=== PATIENT | female | born 1975 | race African-American/Black ===

== ENCOUNTER 2019-01-28 08:08 | Emergency (ER) | payer OTHER ==
[~2019-01-28] VITALS: Ht 167.6 cm; Wt 69.8 kg
[~2019-01-28 08:08] MED LIST: ALBUTEROL INHAL17 GM IH; BACTRIM DS TAB1 EACH PO; CRESTOR40 MG; HYDROCODONE-AP1 EAC6 PO; KEPPRA 500 MG500 M1 PO; LAMICTAL XR200 MG PO; ONDANSETRON HCL4 M2 PO; PREDNISONE 20 M20 MG PO; SIMVASTATIN40 MG; TOPAMAX200 MG; ZPAK PO
[2019-01-28 08:51] LABS: ABSOLUTE NEUTROPHILS 1.7 thou/uL (1.4-8.2); BASOPHILS 1.2 % (0.0-2.0); EOSINOPHILS 3.5 % (0.0-3.0); HEMATOCRIT 40.6 % (37.0-47.0); HEMOGLOBIN 13.6 gm/dL (12.0-15.0); LYMPHOCYTES 31.2 % (24.0-44.0); MCH 32.8 pg (26.0-34.0); MCHC 33.5 g/dL (28.0-37.0); MCV 97.9 fL (80.0-100.0); MONOCYTES 11.7 % (1.0-8.0); PLATELET COUNT 244 thou/uL (150-400); POLYS 52.4 % (36.0-66.0); RBC 4.15 mil/uL (4.20-5.00); RDW 12.7 % (10.5-14.5); WBC 3.2 thou/uL (4.0-11.0)
[2019-01-28 08:59] LABS: CALCIUM 8.6 mg/dL (8.5-10.1); CREATININE 0.8 mg/dL (0.6-1.0)
[2019-01-28 09:07] LABS: ALBUMIN 3.7 g/dL (3.4-5.0); MAGNESIUM 1.9 mg/dL (1.8-2.4); TOTAL BILIRUBIN 0.5 mg/dL (<0.1-1.0); TOTAL PROTEIN 7.4 g/dL (6.4-8.2)
[2019-01-28 10:27] LABS: AMP/METHAMP Negative (Negative); BARBITURATES Negative (Negative); BENZODIAZEPINES Negative (Negative); COCAINE Negative (Negative); METHADONE Negative (Negative); OPIATES Negative (Negative); PCP Negative (Negative)
[2019-01-28 11:07] VITALS: BP 111/77
== END 2019-01-28 11:07 | disposition home or self-care (01) ==
LOC: ER 08:08
PROVIDERS: Emergency Medicine
DX: G40.209 Localization-related (focal) (partial) symptomatic epilepsy and epileptic syndromes with complex partial seizures, not intractable, without status epilepticus (principal); R51 Headache; Z98.890 Other specified postprocedural states; Z98.51 Tubal ligation status

== ENCOUNTER 2020-10-04 08:24 | Inpatient (IN) | payer OTHER ==
[~2020-10-04] VITALS: Ht 157.5 cm; Wt 70.7 kg
--- NOTE | ~2020-10-04 | EMS ---
[address] [address] EMS Patient Care Report Name: ELOISA HARRINGTON Room #: 208-P ADM IN M.R.#: [id number] Admission: 10/04/20 Attend Phys: David Lozada MD Discharge: Date of : 77 Report #: [id number] THIS REPORT FOR: //name// Report Transmitted: 10/05/2020 06:00 EMS Care Summary [place], [place]/[facility] Incident [id number] @ 10/04/2020 07:51 Incident Location [address] [place] [address] [place] [address] Patient ELOISA HARRINGTON Female, 45 Years 1975 Patient Address [address] [place] [address] [place] [id number] Patient History Epilepsy,Brain Tumor, Patient Allergies No known allergies, Patient Medications Keppra, Lamictal, Chief Complaint SI Disposition Transported No Lights/[place] Dispatch Reason Psychiatric Problem/Abnormal Behavior/Suicide Attempt Transported To [facility] [place] Narrative Arrived on the scene, with P722, for a 45 y/o female that is being escorted out of the house by PD. Pt said that she took 20+ pills of Lamictal and a handful of Keppra in an attempt to kill herself. Pt said that she also drank a bunch of Tequila to make it happen quicker. Pt said that she took the pills about an [address] [address] EMS Patient Care Report Name: ELOISA HARRINGTON Room #: 208-P [facility] IN .R.#: [id number] Admission: 10/04/20 Attend Phys: David Lozada MD Discharge: Date of : 77 Report #: [id number] hour ago. Pt said that she has a headache and is very tired and just wants to sleep. Pt said that she did this because she is unhappy with her boyfriend. See Pt Assessment SI with plan, OD on medications See Flowchart. Helped the Pt onto the cot. Transported to the hospital with zero change or incidents. Assisted the Pt from the cot to the bed. Transferred care to receiving facility. Initial Vitals @08:13P: 130,R: 18,BP: 130/85,Pain: 4/10,GCS: 15,CO: 2,SpO2: 100,Revised Trauma: 12,CA Suspected: false @08:04P: 80,R: 18,BP: 130/92,Pain: 4/10,GCS: 15,Revised Trauma: 12,CA Suspected: false Assessments @08:03MENTAL:Person Oriented,Time Oriented,Event Oriented,Place Oriented,SKIN:HEENT:Head/Face: No Abnormalities,Eyes: No Abnormalities,Neck/Airway: No Abnormalities,LUNG SOUNDS:General: Nausea,Left Upper: No Abnormalities,Right Upper: No Abnormalities,Left Lower: No Abnormalities,Right Lower: No Abnormalities,ABDOMEN:General: Nausea,Left Upper: No Abnormalities,Right Upper: No Abnormalities,Left Lower: No Abnormalities,Right Lower: No Abnormalities,PELVIS//GI:No Abnormalities,EXTREMITIES:Left Arm: No Abnormalities,Right Arm: No Abnormalities,Left Leg: No Abnormalities,Right Leg: No Abnormalities,PULSE:Radial: 2+ Normal,NEURO:Abnormal Gait, Impression Suicidal Ideation Procedures @08:03ALS AssessmentResponse: UnchangedSucceeded Timeline 07:49,Call Received 07:49,Dispatch Notified 07:51,Dispatched 07:52,En Route 08:02,On Scene 08:03,At Patient 08:03,ALS Assessment,Response: UnchangedSucceeded, 08:04,BP: 130/92 M,PULSE: 80,RR: 18 R,SPO2: Ox,ETCO2: ,BG: ,PAIN: 4,GCS: 15, 08:08,Depart Scene 08:13,BP: 130/85 M,PULSE: 130,RR: 18 R,SPO2: 100 Ox,ETCO2: ,BG: ,PAIN: 4,GCS: [address] [address] EMS Patient Care Report Name: ELOISA HARRINGTON Martha Room #: 208-P ADM IN M.R.#: [id number] Admission: 10/04/20 Attend Phys: David Lozada MD Discharge: Date of : 77 Report #: [id number] 15, 08:26,At Destination 08:42,Call Closed Disclaimer v1.1 Copyright 2020 [employer] This EMS Care Summary contains data elements from the applicable legal record (which may be displayed differently). It is designed to provide pertinent information for the following purposes: continuity of care, clinical quality, and state data reporting. The complete legal record is available to ED staff and administrators of the receiving hospital in [employer]'s Patient Tracker. All data is provided "as is."
[2020-10-04 08:25] VITALS: BP 134/89
--- NOTE | 2020-10-04 08:39 | NUR ---
SPOKE TO JAZZ[facility] AT [facility] [phone] LAMICTAL: SHE CAN HAVE UP TO 1200 MG AND PEAK IS 4-11 HOURS. CARDIAC CONDUCTION DELAYS AND ADVISED TO GET 12 LEAD EKG, WIDE LEAD QRS, PROLOGED QT/QTC. WE MIGHT SEE HYPO OR HYPERTACHICARDIC. MIGHT HAVE INTERMITTENT JERKING OF MUSCLES. IF SHE GETS AGITATED GIVE ATIVAN FOR THAT. EVERYTHING ELSE WILL BE SUPPORTIVE CARE SO DO TYPICAL WORKUP, DO UDS AND TYLENOL LEVEL. MAKE SURE TO CHECK MG+ ON BLOODWORK WELL. MAKE SURE K+ AND MG+ ARE "ON THE HIGHER END OF NORMAL" AND "SUPPLEMENT" D/T THE CALCIUM AND POTASSIM CHANNGELS OF THE HEART. TREAT SYMPTOMS ACCORDING. ROXANNE: THERE ISN'T "REALLY A TOXIC DOSE" SO EVERYTHING IS SYMPTOMATIC BASED, PEAK OF FOUR HOURS. PATIENT NEEDS MONITORED FOR A MINIMIM OF 6 HOURS AND IF SHE IS STILL TALKING AND TEXTING BY 6 HOURS SHE CAN BE CONSIDERED FOR MEDICAL CLEARANCE.
[2020-10-04] MEDS ORDERED: TROKENDI XR200 MG PO (09:14)
[2020-10-04] MEDS ORDERED: ELETRIPTAN HBR40 MG PO (09:18)
[2020-10-04] MEDS ORDERED: BIOTIN2500 MCG PO (09:19)
[2020-10-04] MEDS ORDERED: VITAMIN B122500 MCG PO (09:22)
[2020-10-04 09:36] LABS: URINE BILIRUBIN NEGATIVE (Negative); URINE BLOOD NEGATIVE (Negative); URINE CLARITY CLEAR; URINE COLOR YELLOW; URINE GLUCOSE-RANDOM* NEGATIVE (Negative); URINE KETONES NEGATIVE (Negative); URINE LEUKOCYTES-REFLEX 1+ (Negative); URINE NITRITE-REFLEX NEGATIVE (Negative); URINE PROTEIN (DIPSTICK) NEGATIVE (Negative); URINE SPECIFIC GRAVITY <= 1.005 (1.005-1.035); URINE UROBILINOGEN 0.2 E.U./dl (0.2-1.0)
--- NOTE | 2020-10-04 09:41 | NUR ---
WHEN ATTEMPTING COVID SWAB PT BECAME VERY ANXIOUS AND AGITATED. PT NOT ORIENTED WELL AT THIS TIME. PT REQUIRING MULTIPLE STAFF MEMBERS TO ATEMPT TO CALM, ASSURE, & REORIENT PT. PROVIDER NOTIFIED & PT RE-ASSESSED.
[2020-10-04 09:45] LABS: AMP/METHAMP Negative (Negative); BARBITURATES Negative (Negative); BENZODIAZEPINES Negative (Negative); COCAINE Negative (Negative); METHADONE Negative (Negative); OPIATES Negative (Negative); PCP Negative (Negative)
[2020-10-04 09:59] LABS: BACTERIA-REFLEX 1-9 Few /HPF (None Seen); CASTS None Seen /LPF (None Seen); CRYSTALS None Seen /LPF (None Seen); SQUAMOUS 4-10 Moderate /LPF (0-3); URINE RBC None Seen /HPF (NONE SEEN); URINE WBC-REFLEX 0-5 Rare /HPF (0-5)
[2020-10-04 10:19] LABS: BASOPHILS 1.8 % (0.0-2.0); EOSINOPHILS 1.1 % (0.0-3.0); HEMATOCRIT 30.9 % (37.0-47.0); HEMOGLOBIN 10.5 gm/dL (12.0-15.0); LYMPHOCYTES 33.7 % (24.0-44.0); MCH 34.9 pg (26.0-34.0); MCHC 34.1 g/dL (28.0-37.0); MCV 102.4 fL (80.0-100.0); MONOCYTES 9.6 % (1.0-8.0); PLATELET COUNT 191 thou/uL (150-400); POLYS 53.8 % (36.0-66.0); RBC 3.02 mil/uL (4.20-5.00); RDW 14.4 % (10.5-14.5); WBC 3.7 thou/uL (4.0-11.0)
[2020-10-04 10:27] LABS: ANION GAP 15 mmol/L (7-16); BUN 8 mg/dL (7-18); CALCIUM 9.1 mg/dL (8.5-10.1); CHLORIDE 103 mmol/L (98-107); CO2 24 mmol/L (21-32); GLUCOSE 81 mg/dL (74-106); SODIUM 142 mmol/L (136-145)
[2020-10-04 10:37] LABS: ALBUMIN 3.5 g/dL (3.4-5.0); SGOT 44 U/L (15-37); SGPT 26 U/L (30-65); TOTAL BILIRUBIN 0.4 mg/dL (0.2-1.0); TOTAL PROTEIN 7.1 g/dL (6.4-8.2)
[2020-10-04 10:53] LABS: SALICYLATE < 2.8 mg/dL (2.8-20.0)
--- NOTE | 2020-10-04 15:25 | EKG ---
[address] [place] [address] ELECTROCARDIOGRAM REPORT Name: ELOISA HARRINGTON Room #: [facility]#: [id number] Admission: 10/04/20 Attend Phys: Discharge: Date of : 77 Report #: [id number] [facility] ED Test Date: 2020-10-04 Test Time: 08:51:51 Pat Name: ELOISA HARRINGTON Department: Room: Gender: F Snake Charmer: divina pierre : 1975 Requested By: Hesham Millan Order Number: [id number] MD: Erick Bear Measurements Intervals [place] Rate: 65 P: 72 MN: 143 QRS: 43 QRSD: 88 T: 25 QT: 419 QTc: 436 Interpretive Statements Sinus rhythm Normal tracing No previous ECG available for comparison Electronically Signed On 10-04-2020 15:24:59 CDT by Erick Bear [email or web address] <ELECTRONICALLY SIGNED> By: Erick Bear MD, [facility] 10/04/20 1524 0851 [id number] Erick Bear MD, FACC /EPI
--- NOTE | 2020-10-04 17:27 | NUR ---
RADHA FROM [facility] CALLED ASKING FOR AN UPDATE ON PATIENT, NOTIFIED OF CURRENT STATUS. RADHA REPORTED SHE WILL CALL BACK FOR AN UPDATE IN "A FEW HOURS". WILL ASSIST FURTHER IF NEEDED.
[2020-10-04 18:35] VITALS: BP 124/72
[2020-10-04 19:00] VITALS: BP 134/74
[2020-10-04 19:45] VITALS: BP 143/77
--- NOTE | 2020-10-04 20:20 | NUR ---
BEDSIDE REPORT GIVEN PT BROUGHT TO ROOM 208 FOR ADMISSION. PT WAS AN ATTEMPT AT SUCIDAL TO KILL HERSELF TOOK A OVERDOSE OF PILLS. LIVES AT HOME WITH BOYFRIEND. SPEECH IS SLURRED. BECOMES AGGITATED AND COMBATIVE AT THIS TIME. MAINTAING PT SAFETY WITH HOSPITALIZATION. DIRECTOR OF CONSULTING SERVICES NOTIFED FOR MEDS ORDRES AND RESTRAINT NEEDED DUE TO PT SO COMBATIVE. WILL CONTINUE TO MONITOR AND ASSESS AT PER NURSING. AND SITER REMAINS AT BEDSIDE
[2020-10-05] VITALS (8 sets, daily range): BP systolic 142–152; BP diastolic 69–81
--- NOTE | 2020-10-05 03:24 | NUR ---
SLEEPING SITTER REMAINS AT BEDSIDE AT TIME. MEDS GIVEN NEEDED FOR PROVIDING ONGOING NURISNG CARE FOR PT. SIDE RAILS PADED PT HISTORY OF SEIZURE DISORDER. FAMILY CALLED TO CHECK ON PT STATUS. ONGOING NURSING CARE AT THIS TIME.
[2020-10-05 04:41] LABS: HEMATOCRIT 27.4 % (37.0-47.0); HEMOGLOBIN 9.3 gm/dL (12.0-15.0); MCH 35.2 pg (26.0-34.0); MCHC 33.7 g/dL (28.0-37.0); MCV 104.4 fL (80.0-100.0); RBC 2.63 mil/uL (4.20-5.00); RDW 14.7 % (10.5-14.5); WBC 5.9 thou/uL (4.0-11.0)
[2020-10-05 04:48] LABS: APTT 24.5 Seconds (24.5-32.8); INR 1.06; PROTIME 11.5 Seconds (10.5-12.1)
[2020-10-05 04:58] LABS: ALBUMIN 3.1 g/dL (3.4-5.0); CALCIUM 7.9 mg/dL (8.5-10.1); MAGNESIUM 1.2 mg/dL (1.8-2.4); POTASSIUM 3.2 mmol/L (3.5-5.1); TOTAL BILIRUBIN 0.6 mg/dL (0.2-1.0); TOTAL PROTEIN 6.2 g/dL (6.4-8.2)
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
--- NOTE | 2020-10-05 16:53 | NUR ---
PT CARE ASSUMED AT 0700. ASSESSMENTS CHARTED. MEDICATIONS CHARTED. RH IV. LH IV. SINUS TACHYCARDIA. COVID NEGATIVE. NPO. PT IS IN RESTRAINTS. PT IS NOT RESPONDING TO QUESTIONS. WILL OPEN HER EYS UPON COMMAND. SLIGHT OCCASSIONAL TREMORS.
[2020-10-06] VITALS (7 sets, daily range): BP systolic 136–157; BP diastolic 73–93
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
--- NOTE | 2020-10-06 07:33 | EKG ---
[address] [address] ELECTROCARDIOGRAM REPORT Name: ELOISA HARRINGTON Room #: 208-P ADM IN M.R.#: [id number] Admission: 10/04/20 Attend Phys: David Lozada MD Discharge: Date of : 77 Report #: [id number] [facility] Test Date: 2020-10-05 Test Time: 19:43:49 Pat Name: ELOISA HARRINGTON Department: Room: 208 P Gender: F Credit Collections Clerk: FSCHWALDOREEN : 1975 Requested By: David Lozada Order Number: [id number] MD: Soto Pate Measurements Intervals [place] Rate: 113 P: 53 [place]: 117 QRS: 48 QRSD: 90 T: 268 QT: 379 QTc: 520 Interpretive Statements Sinus tachycardia Nonspecific T abnormalities, diffuse leads Baseline wander in lead(s) V6 Compared to ECG 10/04/2020 08:51:51 T-wave abnormality now present Sinus rhythm no longer present Electronically Signed On 10-06-2020 7:33:14 CDT by Soto Pate [email or web address] <ELECTRONICALLY SIGNED> By: Soto Pate MD, [facility] 10/06/20 0733 42 42 Soto Pate MD, [facility] /EPI
--- NOTE | 2020-10-06 17:01 | NUR ---
PT CARE ASSUMED AT 0700. ASSESSMENTS CHARTED. MEDICATIONS CHARTED. RH IV. LH IV. SINUS TACHYCARDIA. PT REMAINS UNRESPONSIVE. EEG COMPLETED. MRI NOT ABLE TO BE COMPLETED DUE TO PT MOVEMENT DESPITE ADMINISTRATION OF LORAZEPAM. RESTRAINTS D/C'D BUT REMAIN AT BEDSIDE. INCONTINENT. NPO PER SPEECH.
[2020-10-06 20:06] LABS: SYPHILIS AB Non Reactive (Non Reactive)
[2020-10-07 04:12] VITALS: BP 158/98
--- NOTE | 2020-10-07 06:27 | NUR ---
PATIENTS CARES WERE ASSUMED AT SHIFT CHANGE. PATIENT WAS ASSESSED AND MEDS WERE PASSED. PATIENT WAS MUCH MORE VERBAL THIS SHIFT. CONSULT WAS RECALLED TO DR. RANDALL. PSYC ASSESSMENT NEEDED TO EVALUATE TO COME UP WITH A TREATMENT PLAN. PATIENT CONTINUE WITH A SITTER AND ONCE THIS SHIFT NURSING CALLED FOR A ONE TIME 2MG DOSE OF LORAZAPAM FOR CALMIMG, ROUNDS MADE SITTER IN PLACE FOR PATIENTS SAFETY. THE BED IS IN A LOW AND LOCKED POSITION.
--- NOTE | 2020-10-07 07:58 | NUR ---
ASSUMED PT CARE AT 0700. 0750, PT ASSESSMENT PERFORMED CHARTED, SITTER AT BEDSIDE, PT SLEEPING. SEIZURE AND SUICIDAL PRECAUTIONS IN PLACE. VSS. PTS CLEAN OF INCONTINENCE. WILL CONTINUE TO MONITOR AND FOLLOW POC.
[2020-10-07 08:51] LABS: CALCIUM 7.5 mg/dL (8.5-10.1); CREATININE 0.8 mg/dL (0.6-1.0); MAGNESIUM 1.7 mg/dL (1.8-2.4)
[2020-10-07 09:03] LABS: POTASSIUM 3.2 mmol/L (3.5-5.1)
[2020-10-07 10:12] VITALS: BP 142/90
--- NOTE | 2020-10-07 11:35 | NUR ---
ASSESSMENT UNCHANGED. PT APPEARS TO BE MORE AGITATED, ATTEMPTED TO PULL SELF OVER THE BED, SITTER AT BEDSIDE, PT INCONTINENT OF URINE, COMPLETE BED CHANGE COMPLETED. VSS. WILL CONTINUE TO MONITOR AND FOLLOW POC.
[2020-10-07 15:20] VITALS: BP 138/78
--- NOTE | 2020-10-07 16:22 | NUR ---
PT SLEEPING AT THE MOMENT, PT ASSESSMENT UNCHANGED. SITTER AT BEDSIDE. VSS. WILL CONTINUE TO MONITOR AND FOLLOW POC.
--- NOTE | 2020-10-07 16:59 | NUR ---
Patient admits with overdose she cont to be minimally responsive and aggitated if responseive. Sp with sister who reports patient resides with her boyfriend. She reports patient had texted her sister regarding overdose. Sister called boyfriend to check on her. Sister reports she has been depressed since their mother Jun 05. She reports sister was attempting to seek treatment for depression. She reports she does not know the program, but they where discussing cost to patient. Patient lost her job and rec unemployment. She has no health insurance. casemgt following to assist with dc planning.
[2020-10-07 20:18] VITALS: BP 146/94
--- NOTE | 2020-10-08 03:45 | NUR ---
ASSUMED PT CARE AT CHANGE OF SHIFT, PT IS SLEEPING ON AND OFF WITH PERIODS OF AGITATION, FOLLOWS SIMPLE COMMANDS AT TIMES, SR ON TELE, PRN ATIVAN GIVEN WITH MINIMAL RELIEF, LEGAL ASSOCIATE NOTIFIED, 1 TIME DOSE OF ATIVAN GIVEN FOR SEVERE AGITATION, PT IS SLEEPING AT THE MONMENT, SITTER AT BEDSIDE, NO NEEDS, WILL CONTINUE TO MONITOR CLOSELY AND FOLLOW POC
[2020-10-08 04:24] VITALS: BP 125/100
[2020-10-08 05:07] LABS: ALBUMIN 2.9 g/dL (3.4-5.0); CALCIUM 7.3 mg/dL (8.5-10.1); CREATININE 0.7 mg/dL (0.6-1.0); POTASSIUM 3.4 mmol/L (3.5-5.1)
[2020-10-08 05:54] LABS: MAGNESIUM 2.4 mg/dL (1.8-2.4)
[2020-10-08 07:11] VITALS: BP 169/80
--- NOTE | 2020-10-08 07:45 | NUR ---
Patient BP 169/80; potassium 3.4, night nurse voiced that the patient had diarrhea, the BRIDGES AND BUILDINGS SUPERVISOR reported that the patient just had a bowlmovement at the beginning of this shift, moderate, watery, green and brownish, about pain, patient voiced, " no, i donot know.", patient has seizure home medication. the staff has reported the above to Dr. Sommer through text message. awaiting response.
--- NOTE | 2020-10-08 11:48 | NUR ---
Pt NOT READY TO PARTICIPATE IN PHYSICAL THERAPY AT THIS TIME. WILL PLACE Pt ON HOLD AND AWAIT NEW PT ORDERS ONCE Pt MEDICALLY APPROPRIATE AND CAN PARTICIPATE IN PT PRIOR TO INITIATING PT EVALUATION.
[2020-10-08 12:07] LABS: LAMOTRIGINE > 40.0 ug/mL (2.0-20.0)
[2020-10-08 15:09] VITALS: BP 148/106
[2020-10-08 19:22] VITALS: BP 151/103
--- NOTE | 2020-10-09 04:50 | NUR ---
ASSSUMED PT CARE AT 1900, PT IS MORE VERBAL TONIGHT, CONFUSED, GETS AGITATED, IMPULSIVE AND COMBATIVE WHEN AWAKE, PT STATES, "I WANT TO GO HOME, WHY ARE YOU KEEPING ME HERE" PT REDIRECTED AND SCHEDULED DOUG GIVEN, ASSESSMENTS CHARTED, PT DIDN'T EAT DINNER, STATES SHE IS NOT HUNGRY, FLUIDS INFUSING PER ORDERS, ASSESSMENTS CHARTED, PT IS SLEEPING AT THIS TIME; PROGRESSING SLOWLY TOWARDS GOALS, REMAINS ON 1:1, SITTER IN THE ROOM, NO NEEDS AT THIS TIME, WILL CONTINUE TO MONITOR
[2020-10-09 05:15] LABS: ALBUMIN 2.7 g/dL (3.4-5.0); CALCIUM 7.5 mg/dL (8.5-10.1); CREATININE 0.7 mg/dL (0.6-1.0); PHOSPHORUS 1.6 mg/dL (2.5-4.9)
[2020-10-09 05:21] LABS: POTASSIUM 2.6 mmol/L (3.5-5.1)
[2020-10-09 07:00] VITALS: BP 138/91
--- NOTE | 2020-10-09 08:26 | NUR ---
ASSUMED PT CARE AT 0700. ASSESSMENT PERFORMED CHARTED AT 0815, PT IN BED, SITTER AT BEDSIDE. PT INCONTINENT OF BOWEL AND BLADDER, LINEN CHANGED. VSS. WILL CONTINUE TO MONITOR AND FOLLOW POC.
[2020-10-09 11:00] VITALS: BP 134/90
--- NOTE | 2020-10-09 11:35 | NUR ---
Case discuss in team rounds and with psych. The pt is more alert and conversant today but still on iv haldol for delerium. Memo has ordered that the pt's sister Aletha can have supervised visits. She was here visiting (supervised) yesterday afternoon. Pt remains with 1:1 sitter. Some incontience and starting a po diet today. Nicksch to complete an affidavit as the pt will need inpt treatment when medically stable and it is unclear if she will be voluntary or not. Will continue to follow and initiate referrals to [facility]/C once she is cleared medically. Celio Wasserman is also following up with her for possible [place] med[place] as she has had it in the past with DCN#[id number]. [facility] call center # is [phone] and fax [phone] should she be medically stable for inpt psych referral over the holiday weekend.
--- NOTE | 2020-10-09 11:51 | NUR ---
PT SLEEPING, SITTING AT BEDSIDE. VSS. WILL CONTINUE TO MONITOR AND FOLLOW POC.
--- NOTE | 2020-10-09 14:43 | NUR ---
ATTEMPTED TO CALL MRI PER DR SALCIDO REQUEST. NO SUCCESS. LEFT MESSAGE.
--- NOTE | 2020-10-09 15:53 | NUR ---
PT SLEEPING WITH BLANKET OVER HEAD, SITTER AT BEDSIDE. VSS. ASSESSMENT UNCHANGED. WILL CONTINUE TO MONITOR AND FOLLOW POC.
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
[2020-10-09 19:50] VITALS: BP 130/93
--- NOTE | 2020-10-09 21:15 | NUR ---
assumed pt care at 1900, pt is awake, alert and orientedx3, able to make needs known, pt states that she remembers what happened and that she took a bunch of her seizure pills, pt is sitting watching tv, remains on 1:1, sitter in the room, denies pain, assessments as charted, stood up to the commodex1 assist, denies needs at this time, will continue to monitor and follow poc, progressing well towards goals
[2020-10-10 02:57] VITALS: BP 124/81
[2020-10-10 03:54] LABS: ALBUMIN 2.3 g/dL (3.4-5.0); CALCIUM 7.7 mg/dL (8.5-10.1); CREATININE 0.7 mg/dL (0.6-1.0)
[2020-10-10 03:56] LABS: POTASSIUM 2.6 mmol/L (3.5-5.1)
[2020-10-10 06:06] LABS: LEVETIRACETAM (KEPPRA) 16.1 ug/mL (10.0-40.0)
--- NOTE | 2020-10-10 07:46 | NUR ---
ASSUMED PT CARE AT 0700, PT SITTING UP IN BED, ALERT AND ORIENTED X4, PT STATES SHE FEELS LIKE A NEW WOMAN, VSS. WILL CONTINUE TO MONITOR AND FOLLOW POC. WILL TRY TO ADVANCE DIET.
[2020-10-10 07:55] VITALS: BP 138/92
--- NOTE | 2020-10-10 09:12 | NUR ---
DR DELONG STATES PT IS ABLE TO HAVE CELLPHONE.
[2020-10-10] MEDS ORDERED: LAMICTAL200 MG PO (09:30)
--- NOTE | 2020-10-10 09:30 | NUR ---
PTS MED REC COMPLETED PER PT.
[2020-10-10 15:05] VITALS: BP 139/91
[2020-10-10 19:01] VITALS: BP 136/85
[2020-10-11 04:17] LABS: ALBUMIN 2.2 g/dL (3.4-5.0); CREATININE 0.7 mg/dL (0.6-1.0); PHOSPHORUS 1.3 mg/dL (2.5-4.9)
[2020-10-11 04:20] LABS: POTASSIUM 3.6 mmol/L (3.5-5.1)
--- NOTE | 2020-10-11 05:47 | NUR ---
PT REMAINS A&O, FOLLOWS COMMANDS, NO C/O PAIN, VSS, SITTER AT BEDSIDE, TOLERATING DIET, RESTARTED SEIZURE MEDICATIONS, WILL CON'T TO MONITOR PER PPOC.
[2020-10-11 07:47] VITALS: BP 137/91
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
--- NOTE | 2020-10-11 11:00 | NUR ---
PT WALKED OFF UNIT WITH SITTER AND BOYFRIEND. DR DELONG SIGNED AMA. SEE [employer] WORKER NOTE FOR FUTHER INFORMATION. AMA PAPERWORK SIGNED. PT ALERT AND ORIENTED X4, UP AD VICKIE, DENIES PAIN, PIV OUT BEFORE LEAVING.
--- NOTE | 2020-10-11 11:06 | NUR ---
CALLED TO CCU BY RN WITH REPORTS OF PATIENT THREATENING TO LEAVE AMA. PATIENT HAS NO AFFIDAVIT NOTERIZED. DR. DELONG SPOKE AWARE AND SPOKE WITH DR. PERSON ABOUT PATIENT WANTING TO LEAVE. DR. DELONG ON UNIT AND SPOKE WITH PATIENT WELL PATIENT BOYFRIEND. PATIENT SIGNED AMA PAPERWORK WITH DR. DELONG WITNESS, IN PATIENT CHART.
[2020-10-12 14:06] LABS: LAMOTRIGINE > 40.0 ug/mL (2.0-20.0)
--- NOTE | 2020-10-12 22:23 | EEG ---
[facility] [place] [address] ELECTROENCEPHALOGRAM Name: ELOISA HARRINGTON Room #: 208-P [facility] IN M.R.#: [id number] Admission: 10/04/20 Attend Phys: David Lozada MD Discharge: 10/11/20 Date of : 77 Report #: [id number] THIS REPORT FOR: //name// DOC #: [id number] Aston Doe MD DATE OF SERVICE: 10/06/2020 This patient is admitted with a drug overdose. EEG was done by placing the electrode by standard 10-20 system of electrode placement. Both referential and sequential montages were used for recording. Background activity in this patient's EEG is about 6-7 Hz and 30 microvolt. Photic stimulation is unremarkable. EEG was slow throughout the record, but no active epileptiform activity was noticed. IMPRESSION: This is an abnormal EEG because it is disorganized and poorly formed. That is a nonspecific abnormality which can occur with dementia, encephalopathy, effect of psychotropic medication, etc. Clinical correlation is recommended. Aston Doe MD PK/MUK <ELECTRONICALLY SIGNED> By: Aston Doe MD 10/12/20 [id number] Aston Doe MD /nt
[2020-10-13 11:07] LABS: LEVETIRACETAM (KEPPRA) < 1.0 ug/mL (10.0-40.0)
== END 2020-10-11 11:07 | disposition left against medical advice (07) | DRG 917 ==
LOC: ER 08:24 → EROBS 18:50 → 2N 19:07
PROVIDERS: Emergency Medicine; Hospitalist; Psychiatry & Neurology Neuromuscular Medicine; ADMIT Internal Medicine; ATTEND Internal Medicine
DX: T42.6X2A Poisoning by other antiepileptic and sedative-hypnotic drugs, intentional self-harm, initial encounter (principal); G92 Toxic encephalopathy; Q85.1 Tuberous sclerosis; F10.129 Alcohol abuse with intoxication, unspecified; Y90.9 Presence of alcohol in blood, level not specified; G40.409 Other generalized epilepsy and epileptic syndromes, not intractable, without status epilepticus; Z53.21 Procedure and treatment not carried out due to patient leaving prior to being seen by health care provider; Z20.822 Contact with and (suspected) exposure to COVID-19; Z98.891 History of uterine scar from previous surgery; Z79.899 Other long term (current) drug therapy; Y92.89 Other specified places as the place of occurrence of the external cause
CPT/HCPCS: 10081; 10194